=== PATIENT | female | born 1940 | race Caucasian/White ===

== ENCOUNTER 2019-07-15 14:20 | Inpatient (IN) | payer MEDICARE, BC ==
[~2019-07-15] VITALS: Ht 162.6 cm; Wt 74.8 kg
[2019-07-15] MEDS ORDERED: FENTANYL CITRATE 100 MCG/2 ML AMPUL IV ONE (14:30)
--- NOTE | 2019-07-15 14:35 | NUR ---
PATIENT BROUGHT IN BY AMBULANCE VIA GURNEY S/P FALL A/OX3. SPEAKS IN COMPLETE SENTENCES. ABLE TO ANSWER QUESTIONS C/O BACK PAIN RESPIRATION EVEN AND UNLABNORED. MONITORED ACCORDINGLY WILL CONTINUE TO MONITOR PATIENT
[2019-07-15] MEDS ORDERED: FENTANYL CITRATE 100 MCG/2 ML AMPUL ONE (14:38)
--- NOTE | 2019-07-15 15:40 | NUR ---
PT ABLE TO TOLERATE IV FENTANYL ORDERED PT DENIES PAIN AT THIS TIME PT STATES SHE IS SLEEPY, STATES SHE HAS NOT SLEPT WELL YESTERDAY O2SSAT AT 91% PLACED ON SUPPLEMENTAL O2 AT 2LPM VIA NC O2SAT AT 98% Addendum: 07/15/19 at 1544 by MARICASTIL PT ABLE TO TOLERATE IV FENTANYL ORDERED PT DENIES PAIN AT THIS TIME PT STATES SHE IS SLEEPY, STATES SHE HAS NOT SLEPT WELL YESTERDAY
--- NOTE | 2019-07-15 16:06 | NUR ---
PT UNABLE TO TOLERATE STANDING NOR TAKING A STEP DUE TO "SORE R LEG" PT ABLE TO USE THE COMMODE PT ABLE TO TOLERATE ABD BINDER FOR BACK SUPPORT
--- NOTE | 2019-07-15 16:14 | NUR ---
PT BELONGINGS ACCOUNTED FOR
--- NOTE | 2019-07-15 16:22 | NUR ---
med reconciliation was done with the help of the pt friend, NICO SALEEM, .
--- NOTE | 2019-07-15 16:40 | NUR ---
Pt arrived in [facility] via stretcher accompanied by ER nurse. Pt transferred to bed. But pt needed to go to bathroom, assisted with ER nurse. Pt had unsteady gait and felt SOB. Urinated with clear flor urine. Had to use wheelchair to go back to bed. O2 cannula ready at bedside, per pt doesn't need it at the moment. Endorsed to PM shift nurse.
--- NOTE | 2019-07-15 16:48 | NUR ---
Triage SLOTS MANAGER second page for Coreen ([facility])
[2019-07-15] MEDS ORDERED: MORPHINE SULFATE 2 MG/1 ML DISP.SYRIN IV PRN (17:30)
[2019-07-15] MEDS ORDERED: Z GUARD REMEDY PASTE 57 GM TUBE TOP PRN (17:30)
[2019-07-15] MEDS ORDERED: ONDANSETRON 4 MG/2 ML VIAL IV PRN (17:30)
[2019-07-15] MEDS ORDERED: ACETAMINOPHEN 325 MG TABLET PO PRN (17:30)
[2019-07-15] MEDS ORDERED: MAGNESIUM HYDROXIDE 30 ML LIQUID UDC PO PRN (17:30)
--- NOTE | 2019-07-15 18:32 | NUR ---
Pt. admitted to [facility], under care of Dr. Vasquez. Belongs List completed and with patient. Patient is A/Ox3. Able to speak complete sentences. Respiration is even and unlabored. Denies pain at this time.
[2019-07-15 20:17] VITALS: BP 166/80
[2019-07-15] MEDS: HYDROCODONE/APAP 5-325MG TABLET PO PRN (21:48)
--- NOTE | 2019-07-15 23:46 | NUR ---
Resting in bed upon initial rounds. Admitted for ambulatory dysfunction/ intractable back pain. AAOx3-4. VSS. needs attended. Skin intact. Abdominal binder in placed. Medicated with [place] for back pain. Will monitor for relief. Voiding freely in the bedpan. Ua & C& S collected. On O2 @ 2L via nasal cannula, pulse ox 94%. Kept comfortable. Fall precautions maintained. Siderails up for safety.
[2019-07-16 05:52] VITALS: BP 146/78
[2019-07-16 05:58] LABS: BASOPHILS # (AUTO) 0.1 K/uL (0.0-8.0); BASOPHILS % (AUTO) 1.2 % (0.0-2.0); EOSINOPHILS # (AUTO) 0.4 K/uL (0.0-0.7); EOSINOPHILS % (AUTO) 4.5 % (0.0-7.0); HEMATOCRIT 38.4 % (31.2-41.9); HEMOGLOBIN 12.3 g/dL (10.9-14.3); LYMPHOCYTES # (AUTO) 1.4 K/uL (20.0-40.0); LYMPHOCYTES % (AUTO) 17.6 % (20.5-51.5); MEAN CORPUSCULAR HEMOGLOBIN 26.8 uug (24.7-32.8); MEAN CORPUSCULAR HGB CONC 32 g/dL (32.3-35.6); MEAN CORPUSCULAR VOLUME 83.7 fL (75.5-95.3); MONOCYTES # (AUTO) 0.6 K/uL (2.0-10.0); MONOCYTES % (AUTO) 7.5 % (0.0-11.0); NEUTROPHILS # (AUTO) 5.6 K/uL (1.8-8.9); NEUTROPHILS % (AUTO) 69.2 % (38.5-71.5); PLATELET COUNT (AUTO) 210 K/uL (179-408); RED BLOOD CELL COUNT(AUTO) 4.59 MIL/uL (3.63-4.92); WHITE BLOOD COUNT (AUTO) 8.1 K/uL (3.8-11.8)
[2019-07-16] MEDS: HYDROCODONE/APAP 5-325MG TABLET PO PRN ×2 (06:06→23:48)
[2019-07-16 06:09] LABS: CREATININE 0.9 mg/dL (0.6-1.3); POTASSIUM 3.1 mmol/L (3.5-5.1)
[2019-07-16 06:10] LABS: BILIRUBIN,TOTAL 0.8 mg/dL (0.2-1.0); MAGNESIUM 1.8 mg/dL (1.8-2.4); PHOSPHOROUS 3.8 mg/dL (2.5-4.9)
[2019-07-16 06:14] LABS: THYROID STIMULATING HORMONE 1.733 mIU/mL (0.358-3.740)
--- NOTE | 2019-07-16 06:18 | NUR ---
End of shift notes: Slept well most of the shift. Voiding well in bedpan. Needs attended. Medicated for pain as ordered. Tolerated well. Will monitor for relief. Kept comfortable.VSS.
[2019-07-16] MEDS: PANTOPRAZOLE SODIUM 40 MG TABLET.DR PO SCH (06:30)
[2019-07-16] MEDS ORDERED: Medication Not On Formulary EA (Escitalopram Oxalate (Lexapro) 20 MG) PO SCH (09:00)
[2019-07-16] MEDS ORDERED: METOPROLOL TARTRATE 25 MG TABLET PO SCH (09:00)
[2019-07-16] MEDS ORDERED: ONDANSETRON 4 MG/2 ML VIAL IV PRN (09:15)
[2019-07-16] MEDS: ESCITALOPRAM OXALATE 10 MG TABLET PO SCH (09:47)
[2019-07-16] MEDS: ASPIRIN EC 81 MG TABLET.DR PO SCH (09:47)
[2019-07-16] MEDS: MEMANTINE HCL 10 MG TABLET PO SCH ×2 (09:47→17:39)
[2019-07-16] MEDS: LEVOTHYROXINE SODIUM 50 MCG TABLET PO SCH (09:50)
[2019-07-16] MEDS ORDERED: POTASSIUM CHLORIDE 20 MEQ TAB.PRT.SR PO ONE (10:00)
[2019-07-16 13:24] LABS: *BLOOD, URINE 2+ (NEGATIVE); *CLARITY,URINE CLOUDY (CLEAR); *COLOR,URINE DARK YELLOW (YELLOW); *KETONES,URINE NEGATIVE (NEGATIVE); *UROBILINOGEN,URINE 0.2 E.U./dl (NORMAL); LEUKOCYTE ESTERASE ,URINE TRACE (NEGATIVE); NITRITE, URINE POSITIVE (NEGATIVE); PH,URINE 5.5 (5.0-8.0); UGLUCOSE NEGATIVE (NEGATIVE)
[2019-07-16 13:32] LABS: *BILIRUBIN,URIN 1+ (NEGATIVE)
[2019-07-16 13:42] LABS: BACTERIA,URINE MANY /HPF (NONE SEEN); MUCUS,URINE MODERATE /LPF (0-FEW); RBC,URINE 80-100 /HPF (0-3); SQUAMOUS EPITHELIAL CELL,UR MODERATE /HPF (NONE SEEN); URINE AMORPHOUS URATE MANY /HPF; WBC,URINE TNTC /HPF (0-3)
[2019-07-16] MEDS ORDERED: CALCIUM CARBONATE 500 MG TAB.CHEW PO PRN (14:45)
[2019-07-16] MEDS: METOPROLOL SUCCINATE XL 25 MG TAB.SR.24H PO SCH (14:53)
--- NOTE | 2019-07-16 14:55 | NUR ---
Receive patient sleeping in bed in stable condition. Seen and examined by MD Pham and MD Cummings. Potassium 3.0 low. Replacement of 40meq tablet given. tolerated well. no complaint of pain/discomfort. blood culture result positive for MRSA. MD Cummings aware. Continue ATB treatment. no adverse reaction noted. chest xray result negative. MD Pham aware. no new order. will continue monitor Addendum: 07/16/19 at 1500 by CAMERON PEGUERO RN RN ERROR Addendum: 07/16/19 at 1500 by CAMERON PEGUERO RN RN ERROR
--- NOTE | 2019-07-16 15:18 | NUR ---
Received patient awake in stable condition. Seen and examined by VERONICA Vasquez. Potassium 3.1 replace potassium 40meq tablet. tolerated well. Urine specimen collected-sent to lab. awaiting for result. Complaint of stomach pain and heartburn. VERONICA Vasquez ordered TUMS 500mg every 6 hours if needed. not in distress.will continue monitor
[2019-07-16] MEDS ORDERED: ONDANSETRON HCL 4 MG TABLET PO PRN (17:45)
[2019-07-16 18:36] VITALS: BP 134/91
[2019-07-16 19:30] VITALS: BP 148/82
--- NOTE | 2019-07-16 20:00 | NUR ---
Received patient resting bed watching TV. Alert and oriented times 2-3, confused about the times of day, thought it was morning. Vitals are stable, no signs of distress, no signs of SOB. Abdominal binder in placed. Denies pain. All needs attended to. Changed linens and did partial pm care. Kept comfortable. Safety and fall precautions maintained,bed locked and in lowest position, siderails x2 up and call light within patient reach. All items within patient reach. Will continue to monitor.
[2019-07-16] MEDS ORDERED: ATORVASTATIN 40 MG TABLET PO SCH (21:00)
--- NOTE | 2019-07-16 23:50 | NUR ---
Medicated with David for back pain and leg pain patient stated pain was around 6-7/10. Patient also requested to take the abdominal binder off until the morning. Will monitor for relief.
[2019-07-17] MEDS: LEVOTHYROXINE SODIUM 50 MCG TABLET PO SCH (06:16)
[2019-07-17] MEDS: PANTOPRAZOLE SODIUM 40 MG TABLET.DR PO SCH (06:16)
[2019-07-17 06:21] LABS: CREATININE 0.9 mg/dL (0.6-1.3); POTASSIUM 3.8 mmol/L (3.5-5.1)
[2019-07-17 06:51] VITALS: BP 151/67
--- NOTE | 2019-07-17 07:15 | NUR ---
End of shift note. Patient slept through the night. Medicated for pain as ordered and was taken as tolerable. Medication was effective Voided once in the bedpan. Safety measure in place and all needs attended to. Kept comfortable.Will endorse AM shift.
--- NOTE | 2019-07-17 08:00 | NUR ---
awake but forgetful, explained plan of care- verbalized understanding, on room air, denies of dyspnea, safety measures maintained, call light within reach
[2019-07-17 08:57] VITALS: BP 139/73
[2019-07-17] MEDS: METOPROLOL SUCCINATE XL 25 MG TAB.SR.24H PO SCH (08:57)
[2019-07-17] MEDS: ESCITALOPRAM OXALATE 10 MG TABLET PO SCH (08:57)
[2019-07-17] MEDS: ASPIRIN EC 81 MG TABLET.DR PO SCH (08:57)
[2019-07-17] MEDS: MEMANTINE HCL 10 MG TABLET PO SCH (08:57)
[2019-07-17] MEDS ORDERED: CEphaleXIN 500 MG CAPSULE PO SCH (09:00)
--- NOTE | 2019-07-17 10:00 | NUR ---
pt to be d/cd to ARU
[2019-07-17] MEDS: HYDROCODONE/APAP 5-325MG TABLET PO PRN (12:25)
--- NOTE | 2019-07-17 13:54 | NUR ---
discharge instructions given- verbalized well, to be admitted as aru in same room
[2019-07-17] MEDS ORDERED: DONEPEZIL 10 MG TABLET PO SCH (21:00)
== END 2019-07-17 13:55 | DRG 543 ==
LOC: ER 14:20 → MEDSURG3 17:51
PROVIDERS: ADMIT Hospitalist; ATTEND Hospitalist
DX: M84.48XA Pathological fracture, other site, initial encounter for fracture (principal); N39.0 Urinary tract infection, site not specified; E03.9 Hypothyroidism, unspecified; W01.0XXA Fall on same level from slipping, tripping and stumbling without subsequent striking against object, initial encounter; Y93.E8 Activity, other personal hygiene; Y92.031 Bathroom in apartment as the place of occurrence of the external cause; E11.9 Type 2 diabetes mellitus without complications; E78.5 Hyperlipidemia, unspecified; E87.6 Hypokalemia; F03.90 Unspecified dementia, unspecified severity, without behavioral disturbance, psychotic disturbance, mood disturbance, and anxiety; F32.9 Major depressive disorder, single episode, unspecified; Z79.82 Long term (current) use of aspirin; I10 Essential (primary) hypertension
CPT/HCPCS: 36415; 71045; 72100; 72170; 83735; 84100; 84443; 85025; 85730; 87086; 93005; A4663; G0378; J3010

== ENCOUNTER 2019-07-17 13:53 | Inpatient (IN) | payer MEDICARE, BC ==
[~2019-07-17] VITALS: Ht 165.1 cm; Wt 73.5 kg
[2019-07-17 15:00] VITALS: BP 102/50
[2019-07-17] MEDS: MEMANTINE HCL 10 MG TABLET PO SCH (17:55)
[2019-07-17] MEDS: ATORVASTATIN 40 MG TABLET PO SCH (20:36)
[2019-07-17] MEDS: CEphaleXIN 500 MG CAPSULE PO SCH (20:36)
[2019-07-17 21:20] VITALS: BP 143/68
--- NOTE | 2019-07-17 21:28 | NUR ---
Received pt sleeping comfortably. Aroused easily to verbal stimuli. Oriented x3, with episodes of forgetfulness. Denies pain/ discomfort at this time. Due meds given as ordered. Safety measures maintained. Call light and personal items within reach. Will continue to monitor.
[2019-07-17] MEDS: HYDROCODONE/APAP 5-325MG TABLET PO PRN (23:29)
[2019-07-18] MEDS: LEVOTHYROXINE SODIUM 50 MCG TABLET PO SCH (06:04)
[2019-07-18] MEDS: PANTOPRAZOLE SODIUM 40 MG TABLET.DR PO SCH (06:04)
[2019-07-18 06:08] VITALS: BP 142/65
--- NOTE | 2019-07-18 06:29 | NUR ---
Pt slept intermittently at night. Noted to be forgetful. Medicated x1 for back pain. Pt had x4 episodes of incontinence. Linens changed completely. Pt kept clean and dry throughout the night. Turned and repositioned independently. All needs attended to promptly. Will endorse accordingly to oncoming shift. Continue to monitor.
[2019-07-18 08:39] VITALS: BP 140/72
[2019-07-18] MEDS: CEphaleXIN 500 MG CAPSULE PO SCH ×2 (08:48→21:21)
[2019-07-18] MEDS: METOPROLOL SUCCINATE XL 25 MG TAB.SR.24H PO SCH (08:48)
[2019-07-18] MEDS: MEMANTINE HCL 10 MG TABLET PO SCH ×2 (08:48→17:14)
[2019-07-18] MEDS: ASPIRIN EC 81 MG TABLET.DR PO SCH (08:48)
[2019-07-18] MEDS: HYDROCODONE/APAP 5-325MG TABLET PO PRN (11:02)
[2019-07-18] MEDS: PREGABALIN 25 MG CAPSULE PO SCH (18:04)
[2019-07-18] MEDS: METHOCARBAMOL 500 MG TABLET PO SCH (18:05)
[2019-07-18 18:37] VITALS: BP 122/72
--- NOTE | 2019-07-18 18:40 | NUR ---
Pt received this morning, no acute distress or SOB noted. Pt VS 92% on RA, 2L NC placed raising O2 to 94%. Pt forgetful. PRN pain medication administered for pain 10/08 reported somewhat effective. MD notified, new orders received to assist with pain management. Pt compliant with medication administration and therapy as offered. Pt transferred to wheelchair, toilet, and returned, not tolerated well. Pt assisted to use bedpan. Pt assisted to reposition Q2hr. Pt kept clean and dry, diaper use approved. All safety and comfort needs attended to throughout the shift. Will continue to monitor and endorse to oncoming night nurse.
[2019-07-18 20:00] VITALS: BP 114/65
--- NOTE | 2019-07-18 20:00 | NUR ---
Patient received into care, laying in bed, resting comfortably. Patient is alert/oriented x3 and has no complaints of pain or discomfort at this time. All safety and fall precaution measures are in place. Call light and personal items are within reach at all times. Will continue to monitor and assess.
[2019-07-18] MEDS: ATORVASTATIN 40 MG TABLET PO SCH (21:21)
--- NOTE | 2019-07-19 06:00 | NUR ---
Patient slept intermittently throughout night with no complaints of pain or discomfort verbalized by patient or noted/observed by nurse. All prescribed medications provided as ordered and tolerated well by patient with no adverse side effects verbalized by patient or noted/observed by nurse. All nursing needs met promptly and patient is warm, dry, and comfortable. Call light and personal items remain within reach. All safety and fall precaution measures remain within reach.
[2019-07-19] MEDS: PANTOPRAZOLE SODIUM 40 MG TABLET.DR PO SCH (06:12)
[2019-07-19] MEDS: LEVOTHYROXINE SODIUM 50 MCG TABLET PO SCH (06:12)
[2019-07-19 06:26] VITALS: BP 129/58
--- NOTE | 2019-07-19 07:30 | NUR ---
Received patient resting in bed. Alert and [place] x3. and able to make needs known. No acute distress noted and no SOB noted. Denies any pain and discomfort. Due med given as ordered and tolerated well. Safety and comfort measures provided. Call light and personal items within reach. Will continue to monitor.
[2019-07-19] MEDS: CEphaleXIN 500 MG CAPSULE PO SCH ×2 (09:02→20:16)
[2019-07-19] MEDS: HYDROCODONE/APAP 5-325MG TABLET PO PRN ×2 (09:02→23:59)
[2019-07-19] MEDS: PREGABALIN 25 MG CAPSULE PO SCH ×2 (09:04→17:06)
[2019-07-19] MEDS: METHOCARBAMOL 500 MG TABLET PO SCH ×2 (09:04→17:06)
[2019-07-19] MEDS: MEMANTINE HCL 10 MG TABLET PO SCH ×2 (09:04→17:06)
[2019-07-19] MEDS: ASPIRIN EC 81 MG TABLET.DR PO SCH (09:04)
[2019-07-19] MEDS: METOPROLOL SUCCINATE XL 25 MG TAB.SR.24H PO SCH (09:08)
[2019-07-19] MEDS: LIDOCAINE 5% PATCH TD SCH (09:08)
[2019-07-19 12:00] VITALS: BP 120/56
--- NOTE | 2019-07-19 18:37 | NUR ---
Patient resting in bed. Alert and [place] x3. and able to make needs known. No acute distress noted and no SOB noted. Denies any pain and discomfort. All due med given as ordered and tolerated well. Safety and comfort measures provided. Call light and personal items within reach. Will continue to monitor.
--- NOTE | 2019-07-19 19:00 | NUR ---
PATIENT ALERT ORIENTED, NO SOB NO CHEST PAIN. PATIENT COMPLAIN OF MINOR ACHES ON HER BACK, KEPT CLEAN DRY AND COMFORTABLE. CALL LIGHT WITHIN REACH.
[2019-07-19 19:53] VITALS: BP 139/69
[2019-07-19] MEDS: ATORVASTATIN 40 MG TABLET PO SCH (20:15)
--- NOTE | 2019-07-20 05:06 | NUR ---
PATIENT ASLEEP BUT EASILY AROUSABLE, NO SOB NO CHEST PAIN. PATIENT ASSISTED WITH TOILETING, KEPT CLEAN AND DRY. PATIENT WAS MEDICATED FOR PAIN ON BACK WITH EFFECTIVE RESULTS. PATIENT CONT TO MONITOR FOR PAIN AND DISCOMFORT, CALL LIGHT WITHIN REACH. CONT TO MONITOR.
[2019-07-20 05:28] VITALS: BP 115/70
[2019-07-20] MEDS: LEVOTHYROXINE SODIUM 50 MCG TABLET PO SCH (06:28)
[2019-07-20] MEDS: PANTOPRAZOLE SODIUM 40 MG TABLET.DR PO SCH (06:28)
[2019-07-20] MEDS: METHOCARBAMOL 500 MG TABLET PO SCH ×2 (09:26→18:06)
[2019-07-20] MEDS: MEMANTINE HCL 10 MG TABLET PO SCH ×2 (09:26→18:06)
[2019-07-20] MEDS: ASPIRIN EC 81 MG TABLET.DR PO SCH (09:27)
[2019-07-20] MEDS: LIDOCAINE 5% PATCH TD SCH (09:27)
[2019-07-20] MEDS: CEphaleXIN 500 MG CAPSULE PO SCH ×2 (09:27→20:59)
[2019-07-20] MEDS: PREGABALIN 25 MG CAPSULE PO SCH ×2 (09:27→18:05)
[2019-07-20] MEDS: METOPROLOL SUCCINATE XL 25 MG TAB.SR.24H PO SCH (09:27)
[2019-07-20 20:46] VITALS: BP 149/64
[2019-07-20] MEDS: ATORVASTATIN 40 MG TABLET PO SCH (20:59)
[2019-07-20] MEDS: HYDROCODONE/APAP 5-325MG TABLET PO PRN (21:05)
--- NOTE | 2019-07-20 22:00 | NUR ---
RECEIVED PATIENT IN BED, ALERT AND VERBALLY RESPONSIVE. CAN MAKE NEEDS KNOWN. PATIENT RECEIVED DUE MEDICATIONS, TOLERATED WELL. PATIENT PROVIDED WITH MODERATE ASSIST WITH ADLS. KEPT PATIENT WARM, DRY, AND COMFORTABLE. FALL AND SAFETY PRECAUTIONS OBSERVED. WILL CONTINUE TO MONITOR PATIENT AND ANTICIPATE AND ATTEND TO NEEDS
[2019-07-21] MEDS: PANTOPRAZOLE SODIUM 40 MG TABLET.DR PO SCH (06:14)
[2019-07-21] MEDS: LEVOTHYROXINE SODIUM 50 MCG TABLET PO SCH (06:14)
[2019-07-21 06:15] VITALS: BP 154/72
--- NOTE | 2019-07-21 06:19 | NUR ---
PATIENT IS IN BED, ALERT AND VERBALLY RESPONSIVE. PATIENT HAD DIFFICULTY GOING BACK TO SLEEP AFTER AWAKENING AROUND 1AM. PROVIDED DIM, QUIET ENVIRONMENT. PATIENT ASSISTED TO BATHROOM, AMBULATED WITH WALKER WITH CONTACT GUARD ASSIST. TOLERATED ACTIVITY WELL. PATIENT HAD PAIN UPON GETTING BACK TO BED, BUT WITH REST, PAIN WAS RELIEVED. FALL AND SAFETY PRECAUTIONS OBSERVED. ALL NEEDS ATTENDED.
--- NOTE | 2019-07-21 08:00 | NUR ---
received pt. resting in bed. pt. states she is tired and did not have good rest last night. pt. denies pain/ discomfort. pt. denies sob/ difficulty breathing. all needs met. safety measures in place. call light within reach. will continue to monitor pt.
[2019-07-21] MEDS: CEphaleXIN 500 MG CAPSULE PO SCH ×2 (08:34→21:06)
[2019-07-21] MEDS: ASPIRIN EC 81 MG TABLET.DR PO SCH (08:34)
[2019-07-21] MEDS: METHOCARBAMOL 500 MG TABLET PO SCH ×2 (08:34→17:23)
[2019-07-21] MEDS: MEMANTINE HCL 10 MG TABLET PO SCH ×2 (08:34→17:23)
[2019-07-21] MEDS: PREGABALIN 25 MG CAPSULE PO SCH ×2 (08:35→17:23)
[2019-07-21] MEDS: METOPROLOL SUCCINATE XL 25 MG TAB.SR.24H PO SCH (08:35)
[2019-07-21] MEDS: LIDOCAINE 5% PATCH TD SCH (08:35)
[2019-07-21] MEDS: HYDROCODONE/APAP 5-325MG TABLET PO PRN (10:22)
[2019-07-21 12:00] VITALS: BP 144/75
[2019-07-21 16:00] VITALS: BP 121/45
[2019-07-21 20:12] VITALS: BP 133/64
[2019-07-21] MEDS: ATORVASTATIN 20 MG TABLET PO SCH (21:05)
--- NOTE | 2019-07-21 21:28 | NUR ---
Received pt resting in bed and watching tv. AAO x3 with episodes of forgetfulness. No acute distress noted. Denies pain/ discomfort. Due meds given as ordered. Safety measures maintained. Call light and personal items within reach. Will continue to monitor.
[2019-07-22 04:12] VITALS: BP 143/65
[2019-07-22] MEDS: PANTOPRAZOLE SODIUM 40 MG TABLET.DR PO SCH (06:16)
[2019-07-22] MEDS: LEVOTHYROXINE SODIUM 50 MCG TABLET PO SCH (06:17)
--- NOTE | 2019-07-22 08:11 | NUR ---
Received patient in bed sleeping, easy to arouse. In No acute distress at this time. Able to express needs. NO c/o pain at this time. Safety measures in place and will continue with care.
[2019-07-22] MEDS: PREGABALIN 25 MG CAPSULE PO SCH ×2 (08:34→17:12)
[2019-07-22] MEDS: GLIMEPIRIDE 2 MG TABLET PO SCH (08:34)
[2019-07-22] MEDS: MEMANTINE HCL 10 MG TABLET PO SCH ×2 (08:34→17:12)
[2019-07-22] MEDS: ASPIRIN EC 81 MG TABLET.DR PO SCH (08:35)
[2019-07-22] MEDS: CEphaleXIN 500 MG CAPSULE PO SCH (08:35)
[2019-07-22] MEDS: LIDOCAINE 5% PATCH TD SCH (08:36)
[2019-07-22] MEDS: HYDROCODONE/APAP 5-325MG TABLET PO PRN (08:36)
[2019-07-22] MEDS: METOPROLOL SUCCINATE XL 25 MG TAB.SR.24H PO SCH (08:42)
[2019-07-22] MEDS: METHOCARBAMOL 500 MG TABLET PO SCH ×2 (10:07→17:00)
[2019-07-22 15:00] VITALS: BP 118/61
[2019-07-22] MEDS ORDERED: MIRALAX 17 GM POWD.PACK PO PRN (16:15)
--- NOTE | 2019-07-22 19:46 | NUR ---
Patient is AAO x 3 with episodes of forgetfulness noted. NO acute distress noted. Vital signs stable for patient. Due medications administered as ordered and scheduled. ATB therapy of Keflex 500mg PO Q 12hrs administered for UTI. NO complains of pain up on urination. Patient encouraged to take fluids during shift. on PT/OT therapy. Patient uses a walker for ambulatory and 1 person assist. All other needs attended and met. Safety measures in place, call light left at bed side, endorsed to next shift and will continue with care.
--- NOTE | 2019-07-22 20:00 | NUR ---
Received patient resting in bed watching Tv. Alert and oriented x3, forgetful. No signs or symptoms of SOB, no acute distress, denies pain/ discomfort. All safety measure in place, bed locked and lowered to lowest position, x2 bed rails, call light within reach and bed alarm in place.All needs attended to. All items within patient reach. Will continue to monitor patient.
[2019-07-22 20:30] VITALS: BP 110/79
[2019-07-22] MEDS: ATORVASTATIN 20 MG TABLET PO SCH (21:59)
[2019-07-22] MEDS: DOCUSATE SODIUM 100 MG CAPSULE PO SCH (21:59)
[2019-07-23] MEDS: PANTOPRAZOLE SODIUM 40 MG TABLET.DR PO SCH (06:17)
[2019-07-23] MEDS: LEVOTHYROXINE SODIUM 50 MCG TABLET PO SCH (06:17)
[2019-07-23 06:36] LABS: BASOPHILS # (AUTO) 0.1 K/uL (0.0-8.0); BASOPHILS % (AUTO) 2.1 % (0.0-2.0); EOSINOPHILS # (AUTO) 0.4 K/uL (0.0-0.7); EOSINOPHILS % (AUTO) 6.9 % (0.0-7.0); HEMOGLOBIN 11.7 g/dL (10.9-14.3); LYMPHOCYTES # (AUTO) 1.8 K/uL (20.0-40.0); LYMPHOCYTES % (AUTO) 27.7 % (20.5-51.5); MEAN CORPUSCULAR HEMOGLOBIN 27.5 uug (24.7-32.8); MEAN CORPUSCULAR HGB CONC 33 g/dL (32.3-35.6); MEAN CORPUSCULAR VOLUME 84.6 fL (75.5-95.3); MONOCYTES # (AUTO) 0.5 K/uL (2.0-10.0); MONOCYTES % (AUTO) 8.5 % (0.0-11.0); NEUTROPHILS # (AUTO) 3.5 K/uL (1.8-8.9); NEUTROPHILS % (AUTO) 54.8 % (38.5-71.5); PLATELET COUNT (AUTO) 259 K/uL (179-408); RED BLOOD CELL COUNT(AUTO) 4.26 MIL/uL (3.63-4.92); WHITE BLOOD COUNT (AUTO) 6.4 K/uL (3.8-11.8)
[2019-07-23 06:44] VITALS: BP 115/72
[2019-07-23 06:54] LABS: MAGNESIUM 1.9 mg/dL (1.8-2.4); PHOSPHOROUS 3.7 mg/dL (2.5-4.9); POTASSIUM 3.4 mmol/L (3.5-5.1)
--- NOTE | 2019-07-23 07:46 | NUR ---
End shift report. Patient is AAO x 3 with episodes of forgetfulness noted. NO acute distress noted. Vital signs stable for patient. Due medications administered as ordered and scheduled. ATB therapy of Keflex 500mg PO Q 12hrs administered for UTI. Patient encouraged to take fluids during shift. Patient uses a walker for ambulatory and 1 person assist. All other needs attended and met. Safety measures in place, call light left at bed side, endorsed to next shift and will continue with care.
[2019-07-23 08:00] VITALS: BP 143/49
[2019-07-23] MEDS: GLIMEPIRIDE 2 MG TABLET PO SCH (08:38)
[2019-07-23] MEDS: METHOCARBAMOL 500 MG TABLET PO SCH ×2 (08:38→17:50)
[2019-07-23] MEDS: PREGABALIN 25 MG CAPSULE PO SCH ×2 (08:38→17:50)
[2019-07-23] MEDS: MEMANTINE HCL 10 MG TABLET PO SCH ×2 (08:38→17:50)
[2019-07-23] MEDS: ASPIRIN EC 81 MG TABLET.DR PO SCH (08:38)
[2019-07-23] MEDS: LIDOCAINE 5% PATCH TD SCH (08:39)
[2019-07-23] MEDS: HYDROCODONE/APAP 5-325MG TABLET PO PRN (09:19)
[2019-07-23] MEDS: METOPROLOL SUCCINATE XL 25 MG TAB.SR.24H PO SCH (10:11)
[2019-07-23 11:35] VITALS: BP 114/54
[2019-07-23] MEDS ORDERED: POTASSIUM CHLORIDE 20 MEQ TAB.PRT.SR PO ONE (12:00)
[2019-07-23 15:41] VITALS: BP 126/61
[2019-07-23] MEDS ORDERED: ACETAMINOPHEN 325 MG TABLET PO PRN (19:15)
--- NOTE | 2019-07-23 20:00 | NUR ---
Received patient lying in bed watching TV. Alert and oriented times 3-4, forgetful and needs reorientation. Patient is able to express all needs. Expressed frustration with needs being attended to was upset about being wet and not changed after peeing herself. Assisted patient to the restroom with walker, cleaned linens and provided patient with clean dry gown and socks. Patient is lying comfortably in bed, no complaints, all needs attended to. No signs and symptoms of acute distress, no SOB and denies any pain or discomfort. Safety and comfort measures in place and all items are within patient reach. Will continue to monitor.
[2019-07-23 20:04] VITALS: BP 148/62
[2019-07-23] MEDS: DOCUSATE SODIUM 100 MG CAPSULE PO SCH (22:06)
[2019-07-23] MEDS: ATORVASTATIN 20 MG TABLET PO SCH (22:06)
[2019-07-24 05:24] VITALS: BP 122/65
--- NOTE | 2019-07-24 06:27 | NUR ---
End shift report. Patient is AAO x 3/4 need orientation to time. No acute distress noted, no SOB. Vital signs stable for patient. Due medications administered as ordered and scheduled. Patient received bed bath after incontinence. Assisted patient at a different time to the restroom, patient uses a walker for ambulatory and 1 person assist. All needs attended and met. Safety measures in place, call light left at bed side, endorsed to next shift and will continue with care.
[2019-07-24] MEDS: PANTOPRAZOLE SODIUM 40 MG TABLET.DR PO SCH (06:40)
[2019-07-24] MEDS: LEVOTHYROXINE SODIUM 50 MCG TABLET PO SCH (06:40)
[2019-07-24 08:00] VITALS: BP 160/70
[2019-07-24] MEDS: MEMANTINE HCL 10 MG TABLET PO SCH ×2 (08:32→17:23)
[2019-07-24] MEDS: METOPROLOL SUCCINATE XL 25 MG TAB.SR.24H PO SCH (08:33)
[2019-07-24] MEDS: METHOCARBAMOL 500 MG TABLET PO SCH ×2 (08:33→17:22)
[2019-07-24] MEDS: PREGABALIN 25 MG CAPSULE PO SCH ×2 (08:33→17:23)
[2019-07-24] MEDS: ASPIRIN EC 81 MG TABLET.DR PO SCH (08:33)
[2019-07-24] MEDS: GLIMEPIRIDE 2 MG TABLET PO SCH (08:34)
[2019-07-24] MEDS: LIDOCAINE 5% PATCH TD SCH (08:34)
[2019-07-24 11:59] VITALS: BP 121/61
--- NOTE | 2019-07-24 13:44 | NUR ---
INTERDISCIPLINARY TEAM CONFERENCE
--- NOTE | 2019-07-24 15:19 | NUR ---
PATIENT IS ALERT, ORIENTED X3, WITH EPISODES OF FORGETFUL, NO ACUTE DISTRESS NOTED, PATIENT IS AMBULATORY WITH SUPERVISION, KEPT SAFE
[2019-07-24 20:13] VITALS: BP 168/69
[2019-07-24] MEDS: ATORVASTATIN 20 MG TABLET PO SCH (20:55)
[2019-07-24] MEDS: DOCUSATE SODIUM 100 MG CAPSULE PO SCH (20:55)
[2019-07-24] MEDS: HYDROCODONE/APAP 5-325MG TABLET PO PRN (22:16)
--- NOTE | 2019-07-25 01:39 | NUR ---
alert and oriented x4 needs attended. VSS voiding freely in the bedpan. No acute distress noted. Tolerated po meds well. Left hip dressing intact. Pain meds given as needed. Relief noted. Kept comfortable. Will monitor patient. Fall precautions maintained. Siderails up for safety. Addendum: 07/25/19 at 0142 by CONY ROMAN RN wrong charting/wrong patient
--- NOTE | 2019-07-25 01:46 | NUR ---
resting in bed upon initial rounds. AAOx3-4 Needs attended. Voiding freely. No acute distress noted. Will monitor patient. VSS complained of low back pain, [place] 1 tab given as needed. Relief noted. Fall precautions maintained.
[2019-07-25 05:03] VITALS: BP 128/58
[2019-07-25] MEDS: PANTOPRAZOLE SODIUM 40 MG TABLET.DR PO SCH (06:23)
[2019-07-25] MEDS: LEVOTHYROXINE SODIUM 50 MCG TABLET PO SCH (06:23)
--- NOTE | 2019-07-25 06:43 | NUR ---
End of the shift note: Uneventful night. Slept well most of the shift. Needs attended. No complaints presented during shift. Fall precautions maintained. VSS.
--- NOTE | 2019-07-25 07:47 | NUR ---
Patient noted resting with eyes closed, no facial cues of pain at this time, no signs of distress noted, call light in reach, bed locked and in lowest position, all needs met at this time
[2019-07-25 08:00] VITALS: BP 102/58
[2019-07-25] MEDS: ASPIRIN EC 81 MG TABLET.DR PO SCH (08:46)
[2019-07-25] MEDS: METHOCARBAMOL 500 MG TABLET PO SCH ×2 (08:46→17:31)
[2019-07-25] MEDS: PREGABALIN 25 MG CAPSULE PO SCH ×2 (08:46→17:31)
[2019-07-25] MEDS: METOPROLOL SUCCINATE XL 25 MG TAB.SR.24H PO SCH (08:47)
[2019-07-25] MEDS: MEMANTINE HCL 10 MG TABLET PO SCH ×2 (08:47→17:31)
[2019-07-25] MEDS: GLIMEPIRIDE 2 MG TABLET PO SCH (08:47)
[2019-07-25] MEDS: LIDOCAINE 5% PATCH TD SCH (08:48)
[2019-07-25] MEDS: HYDROCODONE/APAP 5-325MG TABLET PO PRN (08:49)
[2019-07-25 16:08] VITALS: BP 136/67
--- NOTE | 2019-07-25 19:56 | NUR ---
Awake alert and oriented x3-4 No acute distress noted. Needs attended. VSS. Continent of bowel and bladder. No BM noted this shift. Fall precautions maintained. Siderails up for safety.
[2019-07-25 20:41] VITALS: BP 128/62
[2019-07-25] MEDS: DOCUSATE SODIUM 100 MG CAPSULE PO SCH (20:48)
[2019-07-25] MEDS: ATORVASTATIN 20 MG TABLET PO SCH (20:48)
[2019-07-26] MEDS: HYDROCODONE/APAP 5-325MG TABLET PO PRN ×2 (04:43→14:52)
[2019-07-26 05:37] VITALS: BP 128/65
[2019-07-26] MEDS: LEVOTHYROXINE SODIUM 50 MCG TABLET PO SCH (06:24)
[2019-07-26] MEDS: PANTOPRAZOLE SODIUM 40 MG TABLET.DR PO SCH (06:24)
--- NOTE | 2019-07-26 06:39 | NUR ---
End of shift note: OOB with walker with supervision before bedtime. Needs attended. Ambulates to and from the hallway with supervision. Gait slow but steady. Needs attended. Pain meds guiven with relief noted. Voided. No BM noted this shift. Kept comfortable. VSS.
[2019-07-26] MEDS: ASPIRIN EC 81 MG TABLET.DR PO SCH (10:43)
[2019-07-26] MEDS: METOPROLOL SUCCINATE XL 25 MG TAB.SR.24H PO SCH (10:43)
[2019-07-26] MEDS: GLIMEPIRIDE 2 MG TABLET PO SCH (10:43)
[2019-07-26] MEDS: METHOCARBAMOL 500 MG TABLET PO SCH ×2 (10:43→16:59)
[2019-07-26] MEDS: MEMANTINE HCL 10 MG TABLET PO SCH ×2 (10:43→16:59)
[2019-07-26] MEDS: PREGABALIN 25 MG CAPSULE PO SCH ×2 (10:44→16:59)
[2019-07-26] MEDS: LIDOCAINE 5% PATCH TD SCH (10:45)
[2019-07-26 12:33] VITALS: BP 127/74
[2019-07-26 15:16] VITALS: BP 118/61
[2019-07-26] MEDS: DOCUSATE SODIUM 100 MG CAPSULE PO SCH (20:11)
[2019-07-26] MEDS: ATORVASTATIN 20 MG TABLET PO SCH (20:11)
--- NOTE | 2019-07-26 20:16 | NUR ---
Received pt resting in bed. AAO x3, forgetful. No acute distress noted. Denies pain/ discomfort. Due meds given as ordered. Safety measures maintained. Call light and personal items within reach. Will continue to monitor.
[2019-07-26 20:18] VITALS: BP 138/57
[2019-07-27 04:09] VITALS: BP 145/60
[2019-07-27] MEDS: LEVOTHYROXINE SODIUM 50 MCG TABLET PO SCH (06:04)
[2019-07-27] MEDS: PANTOPRAZOLE SODIUM 40 MG TABLET.DR PO SCH (06:04)
[2019-07-27 06:06] LABS: CREATININE 0.9 mg/dL (0.6-1.3); POTASSIUM 3.7 mmol/L (3.5-5.1)
[2019-07-27 08:00] VITALS: BP 179/98
[2019-07-27] MEDS: PREGABALIN 25 MG CAPSULE PO SCH ×2 (09:04→17:57)
[2019-07-27] MEDS: MEMANTINE HCL 10 MG TABLET PO SCH ×2 (09:04→17:58)
[2019-07-27] MEDS: METHOCARBAMOL 500 MG TABLET PO SCH ×2 (09:04→17:58)
[2019-07-27] MEDS: LIDOCAINE 5% PATCH TD SCH (09:04)
[2019-07-27] MEDS: ASPIRIN EC 81 MG TABLET.DR PO SCH (09:04)
[2019-07-27] MEDS: METOPROLOL SUCCINATE XL 25 MG TAB.SR.24H PO SCH (09:04)
[2019-07-27] MEDS: GLIMEPIRIDE 2 MG TABLET PO SCH (09:04)
[2019-07-27] MEDS ORDERED: HYDROCODONE/APAP 10-325 MG TABLET PO PRN (11:15)
[2019-07-27 16:49] VITALS: BP 178/72
--- NOTE | 2019-07-27 18:29 | NUR ---
D/C TO [facility]. REPORT GIVEN TO RYAN. D/C NOTES AND INSTRUCTIONS GIVEN TO [facility] FOR TRANSPORTATION.
== END 2019-07-27 18:00 | DRG 560 ==
PROVIDERS: ADMIT Physical Medicine & Rehabilitation Pain Medicine; ATTEND Physical Medicine & Rehabilitation Pain Medicine
DX: M48.55XD Collapsed vertebra, not elsewhere classified, thoracolumbar region, subsequent encounter for fracture with routine healing (principal); N39.0 Urinary tract infection, site not specified; D68.59 Other primary thrombophilia; E03.9 Hypothyroidism, unspecified; E78.5 Hyperlipidemia, unspecified; W01.0XXD Fall on same level from slipping, tripping and stumbling without subsequent striking against object, subsequent encounter; F03.90 Unspecified dementia, unspecified severity, without behavioral disturbance, psychotic disturbance, mood disturbance, and anxiety; F32.9 Major depressive disorder, single episode, unspecified; I10 Essential (primary) hypertension; I70.0 Atherosclerosis of aorta; E87.6 Hypokalemia; I25.10 Atherosclerotic heart disease of native coronary artery without angina pectoris; I25.2 Old myocardial infarction; R15.9 Full incontinence of feces; R26.81 Unsteadiness on feet; Z91.81 History of falling; E11.9 Type 2 diabetes mellitus without complications; R53.1 Weakness; M47.26 Other spondylosis with radiculopathy, lumbar region; R29.6 Repeated falls; R32 Unspecified urinary incontinence; Z88.0 Allergy status to penicillin
CPT/HCPCS: 36415; 82652; 83735; 84100; 85025

== ENCOUNTER 2019-10-04 21:25 | Inpatient (IN) | payer MEDICARE, BC ==
[~2019-10-04] VITALS: Ht 162.6 cm; Wt 64.9 kg
[~2019-10-04 21:25] MED LIST: ASPI-618 PO; ATOR20TA PO; DOCU100C36 PO; GLIM2TAB PO; HYDR-3980 PO; LEVO50TA8 PO; LIDO30AD10 TD; MEMA10TA PO; METH500T6 PO; METO-356 PO; PANT40TA2 PO; PREG25CA PO
--- NOTE | 2019-10-04 21:30 | NUR ---
Dr. Cao at bedside for MSE.
[2019-10-04] MEDS ORDERED: ASPIRIN 81 MG TAB.CHEW ONE (21:43)
[2019-10-04] MEDS ORDERED: ONDANSETRON 4 MG/2 ML VIAL ONE (21:44)
[2019-10-04] MEDS ORDERED: NITROGLYCERIN OINT 1 GM PACKET TP ONE ×2 (21:44→21:45)
[2019-10-04] MEDS ORDERED: ASPIRIN 81 MG TAB.CHEW PO ONE (21:45)
[2019-10-04] MEDS ORDERED: IV NORMAL SALINE 1000 ML BAG IV ONE (21:45)
[2019-10-04] MEDS ORDERED: ONDANSETRON 4 MG/2 ML VIAL IV ONE (21:45)
[2019-10-04 21:48] LABS: BASOPHILS # (AUTO) 0.1 K/uL (0.0-8.0); BASOPHILS % (AUTO) 0.5 % (0.0-2.0); EOSINOPHILS # (AUTO) 0.1 K/uL (0.0-0.7); EOSINOPHILS % (AUTO) 0.9 % (0.0-7.0); HEMATOCRIT 40.3 % (31.2-41.9); HEMOGLOBIN 12.9 g/dL (10.9-14.3); LYMPHOCYTES % (AUTO) 8.5 % (20.5-51.5); MEAN CORPUSCULAR HEMOGLOBIN 26.8 uug (24.7-32.8); MEAN CORPUSCULAR HGB CONC 32 g/dL (32.3-35.6); MEAN CORPUSCULAR VOLUME 83.5 fL (75.5-95.3); MONOCYTES # (AUTO) 0.8 K/uL (2.0-10.0); MONOCYTES % (AUTO) 6.6 % (0.0-11.0); NEUTROPHILS # (AUTO) 10.1 K/uL (1.8-8.9); NEUTROPHILS % (AUTO) 83.5 % (38.5-71.5); PLATELET COUNT (AUTO) 266 K/uL (179-408); RED BLOOD CELL COUNT(AUTO) 4.82 MIL/uL (3.63-4.92)
[2019-10-04 21:54] LABS: CARBON DIOXIDE 25 mmol/L (21-32); CHLORIDE 104 mmol/L (98-107); CREATININE 1.4 mg/dL (0.6-1.3); GLUCOSE 139 mg/dL (74-106); POTASSIUM 3.7 mmol/L (3.5-5.1); UREA NITROGEN, BLOOD 15 mg/dL (7-18)
--- NOTE | 2019-10-04 21:57 | NUR ---
Xray at bedside.
[2019-10-04 22:07] LABS: ALANINE AMINOTRANSFERASE 43 U/L (14-59); ALKALINE PHOSPHATASE 127 U/L (50-136); ASPARTATE AMINOTRANSFERASE 33 U/L (15-37); BILIRUBIN,DIRECT 0.1 mg/dL (0.0-0.2); BILIRUBIN,TOTAL 0.6 mg/dL (0.2-1.0); TOTAL PROTEIN, SERUM 6.9 g/dL (6.4-8.2)
--- NOTE | 2019-10-04 22:55 | NUR ---
Inserted loza catheter, pt tolerated procedure well, urine sample sent to lab.
[2019-10-04 23:12] LABS: *BILIRUBIN,URIN 2+ (NEGATIVE); *CLARITY,URINE SLIGHTLY CLOUDY (CLEAR); *COLOR,URINE DARK YELLOW (YELLOW); *KETONES,URINE 2+ (NEGATIVE); *UROBILINOGEN,URINE 0.2 E.U./dl (NORMAL); LEUKOCYTE ESTERASE ,URINE NEGATIVE (NEGATIVE); NITRITE, URINE NEGATIVE (NEGATIVE); PH,URINE 5.5 (5.0-8.0); UGLUCOSE NEGATIVE (NEGATIVE)
[2019-10-04 23:13] LABS: *BLOOD, URINE TRACE (NEGATIVE)
--- NOTE | 2019-10-04 23:17 | NUR ---
Called [facility] to page Td Vasquez DNP.
[2019-10-04 23:22] LABS: SQUAMOUS EPITHELIAL CELL,UR MODERATE /HPF (NONE SEEN); WBC,URINE 0-3 /HPF (0-3)
--- NOTE | 2019-10-04 23:45 | NUR ---
Dr. Cao on panel call with Td Vasquez DNP. Patient accepted for admission to [facility], diagnosis: generalized weakness.
[2019-10-05] MEDS ORDERED: ONDANSETRON 4 MG/2 ML VIAL IV PRN
[2019-10-05] MEDS ORDERED: Z GUARD REMEDY PASTE 57 GM TUBE TOP PRN
--- NOTE | 2019-10-05 00:02 | NUR ---
Report given to Greta VILLAGRAN Tele.
--- NOTE | 2019-10-05 00:30 | NUR ---
RECEIVED PT FROM ER VIA [facility]. UNDER THE CARE OF DR. STRICKLAND. DX;ACUTE RENAL FAILURE. PT IN NO ACUTE DISTRESS. IV INTACT. MCC ASSESSMENT DONE. PT HAD REDNESS ON RIGHT BUTTOCK. PT REFUSED TO LET US TAKE A PHOTO OF HER SKIN. ADMISSION PROCESS AND CARE PLAN INITIATED. SAFETY AND COMFORT PROVIDED. WILL CONTINUE TO MONITOR.
[2019-10-05 01:00] VITALS: BP 119/51
[2019-10-05] MEDS: IV NS 1000 ML 1,000 ML IV PRN ×2 (02:32→16:44)
[2019-10-05 03:19] LABS: BASOPHILS # (AUTO) 0.1 K/uL (0.0-8.0); BASOPHILS % (AUTO) 0.8 % (0.0-2.0); EOSINOPHILS # (AUTO) 0.1 K/uL (0.0-0.7); EOSINOPHILS % (AUTO) 0.9 % (0.0-7.0); HEMATOCRIT 33.1 % (31.2-41.9); HEMOGLOBIN 10.8 g/dL (10.9-14.3); LYMPHOCYTES # (AUTO) 1.3 K/uL (20.0-40.0); LYMPHOCYTES % (AUTO) 12.6 % (20.5-51.5); MEAN CORPUSCULAR HEMOGLOBIN 27.2 uug (24.7-32.8); MEAN CORPUSCULAR HGB CONC 33 g/dL (32.3-35.6); MEAN CORPUSCULAR VOLUME 83.6 fL (75.5-95.3); MONOCYTES # (AUTO) 0.8 K/uL (2.0-10.0); MONOCYTES % (AUTO) 8.1 % (0.0-11.0); NEUTROPHILS # (AUTO) 8.1 K/uL (1.8-8.9); NEUTROPHILS % (AUTO) 77.6 % (38.5-71.5); PLATELET COUNT (AUTO) 213 K/uL (179-408); RED BLOOD CELL COUNT(AUTO) 3.96 MIL/uL (3.63-4.92); WHITE BLOOD COUNT (AUTO) 10.4 K/uL (3.8-11.8)
[2019-10-05 03:27] LABS: BILIRUBIN,TOTAL 0.4 mg/dL (0.2-1.0); CREATININE 1.1 mg/dL (0.6-1.3); MAGNESIUM 1.8 mg/dL (1.8-2.4); PHOSPHOROUS 4.5 mg/dL (2.5-4.9); POTASSIUM 3.4 mmol/L (3.5-5.1); TOTAL PROTEIN, SERUM 5.6 g/dL (6.4-8.2)
[2019-10-05] MEDS: PANTOPRAZOLE SODIUM 40 MG TABLET.DR PO SCH (06:18)
[2019-10-05] MEDS: LEVOTHYROXINE SODIUM 50 MCG TABLET PO SCH (06:18)
--- NOTE | 2019-10-05 06:21 | NUR ---
PT SLEPT INTERMITTENTLY. PT COOPERATIVE WITH CARE. PT MEDICATIONS BROUGHT DOWN TO PHARMACY. PT REFUSED TO LET STAFF TOOK A PHOTO OF HER RIGHT BUTTOCK REDNESS. IV INTACT. SAFETY AND COMFORT PROVIDED. ALL NEEDS ARE MET. WILL ENDORSE TO INCOMING NURSE FOR CONTINUITY OF CARE.
[2019-10-05 06:35] VITALS: BP 137/83
--- NOTE | 2019-10-05 08:00 | NUR ---
RECEIVED PATIENT IN BED AWAKE ALERT AND ORIENTED BUT IS FORGETFUL NEEDS TO BE REMINDED TO USE THE CALL LIGHT AND STAY IN BED UNTIL HELP ARRIVES REMAIN ON IVF ORDERED WITH NO S/S OF INFILTERATION AT THIS TIME PATIENT PLACED ON C DIFF ISOLATION PENDING COLLECTION OF STOOL AND RESULTS ORDERED.
[2019-10-05] MEDS: GLIMEPIRIDE 2 MG TABLET PO SCH (08:57)
[2019-10-05] MEDS ORDERED: LIDOCAINE 5% PATCH TD SCH (09:00)
[2019-10-05] MEDS: METOPROLOL SUCCINATE XL 25 MG TAB.SR.24H PO SCH (09:09)
[2019-10-05] MEDS: ASPIRIN EC 81 MG TABLET.DR PO SCH (09:09)
[2019-10-05] MEDS: PREGABALIN 25 MG CAPSULE PO SCH ×2 (09:09→16:44)
[2019-10-05] MEDS: MEMANTINE HCL 10 MG TABLET PO SCH ×2 (09:12→16:44)
[2019-10-05] MEDS: ACETAMINOPHEN 325 MG TABLET PO PRN (09:21)
[2019-10-05] MEDS: LIDOCAINE 5% PATCH TD SCH (10:05)
[2019-10-05 11:30] VITALS: BP 107/57
[2019-10-05] MEDS ORDERED: POTASSIUM CHLORIDE 20 MEQ POWDER PACKET PO ONE (11:34)
[2019-10-05] MEDS: MAGNESIUM SULFATE/D5W 100 ML IV SCH ×2 (12:23→13:22)
--- NOTE | 2019-10-05 15:01 | NUR ---
PATIENT HAD A BOWEL MOVEMENT STOOL COLLECTED AND SENT TO THE LAB ORDERED AWAITING FOR RESULT.
[2019-10-05 15:56] VITALS: BP 148/72
--- NOTE | 2019-10-05 20:00 | NUR ---
Received patient awake and alert. Patient shows no signs or symptoms of distress at this time. Vital signs stable. IV patent and intact with no signs of infiltration. Bed set to lowest position. Call light within reach. Side rails x2 are up. Will continue to monitor patient.
[2019-10-05] MEDS: Z GUARD REMEDY PASTE 57 GM TUBE TOP SCH (20:33)
[2019-10-05 20:36] VITALS: BP 150/52
[2019-10-05] MEDS ORDERED: ATORVASTATIN 20 MG TABLET PO SCH (21:00)
[2019-10-05] MEDS ORDERED: DOCUSATE SODIUM 100 MG CAPSULE PO SCH (21:00)
[2019-10-06] VITALS: BP 125/83
[2019-10-06] MEDS: ACETAMINOPHEN 325 MG TABLET PO PRN (01:12)
[2019-10-06] MEDS: HYDROCODONE/APAP 5-325MG TABLET PO PRN ×2 (02:48→21:55)
[2019-10-06 04:00] VITALS: BP_SYST 122; BP_SYST 134; BP_DIAS 58; BP_DIAS 78
[2019-10-06] MEDS: LEVOTHYROXINE SODIUM 50 MCG TABLET PO SCH (06:10)
[2019-10-06] MEDS: PANTOPRAZOLE SODIUM 40 MG TABLET.DR PO SCH (06:10)
[2019-10-06 06:41] LABS: CREATININE 1.1 mg/dL (0.6-1.3); MAGNESIUM 2.2 mg/dL (1.8-2.4); PHOSPHOROUS 2.9 mg/dL (2.5-4.9); POTASSIUM 3.4 mmol/L (3.5-5.1)
[2019-10-06 06:43] LABS: BASOPHILS # (AUTO) 0.1 K/uL (0.0-8.0); BASOPHILS % (AUTO) 0.7 % (0.0-2.0); EOSINOPHILS # (AUTO) 0.2 K/uL (0.0-0.7); EOSINOPHILS % (AUTO) 2.7 % (0.0-7.0); HEMATOCRIT 33.3 % (31.2-41.9); HEMOGLOBIN 10.9 g/dL (10.9-14.3); LYMPHOCYTES # (AUTO) 1.3 K/uL (20.0-40.0); LYMPHOCYTES % (AUTO) 15.5 % (20.5-51.5); MEAN CORPUSCULAR HEMOGLOBIN 27.4 uug (24.7-32.8); MEAN CORPUSCULAR HGB CONC 33 g/dL (32.3-35.6); MEAN CORPUSCULAR VOLUME 83.6 fL (75.5-95.3); MONOCYTES # (AUTO) 1.1 K/uL (2.0-10.0); MONOCYTES % (AUTO) 13.3 % (0.0-11.0); NEUTROPHILS # (AUTO) 5.7 K/uL (1.8-8.9); NEUTROPHILS % (AUTO) 67.8 % (38.5-71.5); PLATELET COUNT (AUTO) 199 K/uL (179-408); RED BLOOD CELL COUNT(AUTO) 3.99 MIL/uL (3.63-4.92); WHITE BLOOD COUNT (AUTO) 8.4 K/uL (3.8-11.8)
[2019-10-06] MEDS: IV NS 1000 ML 1,000 ML IV PRN (06:43)
--- NOTE | 2019-10-06 07:05 | NUR ---
Patient shows no signs or symptoms of distress at this time. Vital signs stable. NSR with v-pacing on tele monitor. Will endorse patient to day shift nurse in stable condition.
--- NOTE | 2019-10-06 07:31 | NUR ---
PATIENT RECEIVED IN BED ASLEEP AROUSES EASILY ON ROUNDS ON ROOM AIR WITH NO SHORTNESS OF BREATH AT THIS TIME REMAIN ON IVF ORDERED WITH NO S/S OF INFILTERATION ON ROUNDS REMAIN ON CONTACT ISOLATION ORDERED PENDING RESULT OF C DIFF ORDERED CALL LIGHTS AND PERSONAL BELONGINGS ARE WITHIN EASY REACH WILL CONTINUE TO OBSERVE PT AND PROVIDE SAFE ENVIRONMENT
[2019-10-06] MEDS: MEMANTINE HCL 10 MG TABLET PO SCH ×2 (08:32→16:59)
[2019-10-06] MEDS: PREGABALIN 25 MG CAPSULE PO SCH ×2 (08:32→16:59)
[2019-10-06] MEDS: ASPIRIN EC 81 MG TABLET.DR PO SCH (08:33)
[2019-10-06] MEDS: GLIMEPIRIDE 2 MG TABLET PO SCH (08:33)
[2019-10-06] MEDS: LIDOCAINE 5% PATCH TD SCH (08:33)
[2019-10-06] MEDS: METOPROLOL SUCCINATE XL 25 MG TAB.SR.24H PO SCH (08:34)
[2019-10-06] MEDS: Z GUARD REMEDY PASTE 57 GM TUBE TOP SCH ×2 (08:36→21:39)
[2019-10-06] MEDS ORDERED: POTASSIUM CHLORIDE 20 MEQ POWDER PACKET PO ONE (10:15)
--- NOTE | 2019-10-06 10:15 | NUR ---
POTASSIUM LEVEL IS 3.4 PATIENT SEEN BY JUAN WITH NEW REPLACEMENT ORDER AND NOTED
[2019-10-06 11:34] VITALS: BP 130/56
--- NOTE | 2019-10-06 14:30 | NUR ---
PATIENT IS POSITIVE FOR C DIFF PER THE [facility] NOTIFIED WITH NEW ORDERS AND NOTED.PATIENT CONTINUES ON ISOLATION ORDERED.
[2019-10-06] MEDS: METRONIDAZOLE 500 MG TABLET PO SCH ×2 (15:16→21:39)
[2019-10-06 16:00] VITALS: BP 154/83
[2019-10-06] MEDS: VANCOMYCIN FOR PO/GT/NG USE PO SCH (17:28)
--- NOTE | 2019-10-06 18:00 | NUR ---
IV SITE WAS INFILTERATED AND PATIENT WAS NOT ALLOWING ME TO RESTART LINE STATED WANTS TO REST FIRST BUT SHE FINALLY ALLOWED ME TO INSERT ONE TO HER LEFT FOREARM WITH ONE ATTEMPT IVF CONTINUED ORDERED.REMAIN ON FLAGYL AND ORAL VANCO ORDERED WITH NO ADVERSE EFFECTS AT THIS TIME WILL CONTINUE TO OBSERVE.
--- NOTE | 2019-10-06 19:30 | NUR ---
Received patient lying in bed. No signs of acute distress. No complaints of SOB. Patient was forgetful as to where she was at, reoriented her easily and she was compliant with care. Left forearm IV patent and intact. Safety measures initiated and will continue to monitor.
[2019-10-06 20:00] VITALS: BP 148/69
[2019-10-06] MEDS: ATORVASTATIN 10 MG TABLET PO SCH (21:39)
[2019-10-07] MEDS: VANCOMYCIN FOR PO/GT/NG USE PO SCH ×5 (00:04→23:58)
[2019-10-07] MEDS: IV NS 1000 ML 1,000 ML IV PRN (02:24)
[2019-10-07 04:00] VITALS: BP 102/69
[2019-10-07] MEDS: PANTOPRAZOLE SODIUM 40 MG TABLET.DR PO SCH (06:07)
[2019-10-07] MEDS: METRONIDAZOLE 500 MG TABLET PO SCH ×3 (06:07→21:47)
[2019-10-07] MEDS: LEVOTHYROXINE SODIUM 50 MCG TABLET PO SCH (06:07)
--- NOTE | 2019-10-07 06:21 | NUR ---
Patient is calm and lying in bed. No signs of acute distress. No complaints of pain or SOB this morning. Patient slept intermittently. Vital signs were stable. monitor tech in place. Left forearm IV intact and running NS at 75ml/hr. Needs met and attended to. Safety measures endorsed to oncoming staff.
[2019-10-07 06:45] LABS: CREATININE 0.9 mg/dL (0.6-1.3); POTASSIUM 3.3 mmol/L (3.5-5.1)
[2019-10-07 06:47] LABS: BASOPHILS # (AUTO) 0.1 K/uL (0.0-8.0); EOSINOPHILS # (AUTO) 0.3 K/uL (0.0-0.7); HEMATOCRIT 33.8 % (31.2-41.9); LYMPHOCYTES # (AUTO) 1.5 K/uL (20.0-40.0); LYMPHOCYTES % (AUTO) 23.9 % (20.5-51.5); MEAN CORPUSCULAR HGB CONC 33 g/dL (32.3-35.6); MEAN CORPUSCULAR VOLUME 82.8 fL (75.5-95.3); MONOCYTES # (AUTO) 0.9 K/uL (2.0-10.0); MONOCYTES % (AUTO) 14.2 % (0.0-11.0); NEUTROPHILS # (AUTO) 3.4 K/uL (1.8-8.9); NEUTROPHILS % (AUTO) 55.9 % (38.5-71.5); PLATELET COUNT (AUTO) 203 K/uL (179-408); RED BLOOD CELL COUNT(AUTO) 4.08 MIL/uL (3.63-4.92); WHITE BLOOD COUNT (AUTO) 6.1 K/uL (3.8-11.8)
--- NOTE | 2019-10-07 07:45 | NUR ---
Received patient in bed awake, alert and oriented times 4. No signs of respiratory distress notes at this time, patient is saturating well on room air. No complaint of pain at this time. IV in tact on left AC, no sign of infiltration. Patient is positive for C-Diff so contact isolation implemented and communicated to MEDICAL ONCOLOGY PHYSICIAN. Safety measures in place bed in lowest position, locked and bed alarm activated. Call light and patient's belongings are within reach. Will continue to monitor and observe.
[2019-10-07] MEDS ORDERED: POTASSIUM CHLORIDE 20 MEQ TAB.PRT.SR PO ONE (08:15)
[2019-10-07] MEDS: PREGABALIN 25 MG CAPSULE PO SCH ×2 (08:52→17:46)
[2019-10-07] MEDS: LIDOCAINE 5% PATCH TD SCH (08:52)
[2019-10-07] MEDS: ASPIRIN EC 81 MG TABLET.DR PO SCH (08:53)
[2019-10-07] MEDS: GLIMEPIRIDE 2 MG TABLET PO SCH (08:53)
[2019-10-07] MEDS: MEMANTINE HCL 10 MG TABLET PO SCH ×2 (08:53→17:46)
[2019-10-07] MEDS: Z GUARD REMEDY PASTE 57 GM TUBE TOP SCH ×2 (08:54→21:41)
[2019-10-07] MEDS: METOPROLOL SUCCINATE XL 25 MG TAB.SR.24H PO SCH (09:11)
--- NOTE | 2019-10-07 11:00 | NUR ---
Patient complains of increased coughing and was able to observe myself, will communicate new finding to MD and dayday test ordered for patient
[2019-10-07 11:56] VITALS: BP 150/74
[2019-10-07] MEDS ORDERED: LOPERAMIDE HCL 2 MG CAPSULE PO PRN (12:00)
[2019-10-07] MEDS: ENOXAPARIN SODIUM 40 MG/0.4 ML DISP.SYRIN SQ SCH (13:53)
[2019-10-07] MEDS: IV 1/2NS 1000 ML 1,000 ML IV PRN (13:58)
[2019-10-07 16:00] VITALS: BP 146/56
--- NOTE | 2019-10-07 18:26 | NUR ---
Patient resting comfortably in bed. No signs of respiratory distress noted, patient is saturating well on room air. Will continue patient of IV fluids as ordered. Safety precautions in place, patient's bed is in the lowest position and locked with alarm activated. Patient's belongings are within reach as well as the call light. Awaiting the results for covid testing done. Will endorse to the oncoming nurse.
--- NOTE | 2019-10-07 19:21 | NUR ---
Patient received in bed, AAOx4. Patient denies any acute distress or pain at this time. Patient is saturating well in room air, vitals are stable. Patient's IV on LFA is patent with 1/2 NS running at 50cc. Safety measures in place. Call light within reach. Bed low and locked in position. Will continue with the plan of care.
[2019-10-07 20:09] VITALS: BP 148/70
[2019-10-07] MEDS: ATORVASTATIN 10 MG TABLET PO SCH (21:47)
[2019-10-08 00:08] VITALS: BP 163/79
[2019-10-08] MEDS: HYDROCODONE/APAP 5-325MG TABLET PO PRN (03:10)
[2019-10-08 04:40] VITALS: BP 165/87
[2019-10-08 06:13] LABS: BASOPHILS # (AUTO) 0.1 K/uL (0.0-8.0); BASOPHILS % (AUTO) 0.9 % (0.0-2.0); EOSINOPHILS # (AUTO) 0.3 K/uL (0.0-0.7); EOSINOPHILS % (AUTO) 3.7 % (0.0-7.0); HEMOGLOBIN 11.5 g/dL (10.9-14.3); LYMPHOCYTES # (AUTO) 1.1 K/uL (20.0-40.0); LYMPHOCYTES % (AUTO) 14.6 % (20.5-51.5); MEAN CORPUSCULAR HGB CONC 33 g/dL (32.3-35.6); MEAN CORPUSCULAR VOLUME 82.4 fL (75.5-95.3); MONOCYTES # (AUTO) 0.8 K/uL (2.0-10.0); MONOCYTES % (AUTO) 10.3 % (0.0-11.0); NEUTROPHILS # (AUTO) 5.5 K/uL (1.8-8.9); NEUTROPHILS % (AUTO) 70.5 % (38.5-71.5); PLATELET COUNT (AUTO) 223 K/uL (179-408); RED BLOOD CELL COUNT(AUTO) 4.25 MIL/uL (3.63-4.92); WHITE BLOOD COUNT (AUTO) 7.8 K/uL (3.8-11.8)
[2019-10-08] MEDS: PANTOPRAZOLE SODIUM 40 MG TABLET.DR PO SCH (06:19)
[2019-10-08] MEDS: METRONIDAZOLE 500 MG TABLET PO SCH ×3 (06:19→21:21)
[2019-10-08] MEDS: LEVOTHYROXINE SODIUM 50 MCG TABLET PO SCH (06:19)
[2019-10-08] MEDS: VANCOMYCIN FOR PO/GT/NG USE PO SCH ×4 (06:20→23:23)
[2019-10-08 06:27] LABS: CREATININE 0.9 mg/dL (0.6-1.3); POTASSIUM 3.2 mmol/L (3.5-5.1)
--- NOTE | 2019-10-08 06:50 | NUR ---
Patient slept intermittently through the night. Patient is awake and denies any acute distress or pain at this time. Patient is Sinus Rhythm 91 on tele monitor. Vitals stable. Prescribed medications given, patient tolerated. Comfort care and needs attended. Pain was managed effectively on my shift. Isolation and fall precaution maintained. Safety measures in place. Bed low and locked in position. Call light within reach. Will endorse to the oncoming nurse accordingly.
[2019-10-08] MEDS ORDERED: POTASSIUM CHLORIDE 20 MEQ POWDER PACKET PO ONE (07:30)
[2019-10-08] MEDS: POTASSIUM CHLORIDE 50 ML IV SCH ×2 (08:03→09:16)
[2019-10-08] MEDS: GLIMEPIRIDE 2 MG TABLET PO SCH (08:05)
[2019-10-08] MEDS: ASPIRIN EC 81 MG TABLET.DR PO SCH (08:05)
[2019-10-08] MEDS: PREGABALIN 25 MG CAPSULE PO SCH ×2 (08:06→16:29)
[2019-10-08] MEDS: MEMANTINE HCL 10 MG TABLET PO SCH ×2 (08:06→16:29)
[2019-10-08] MEDS: METOPROLOL SUCCINATE XL 25 MG TAB.SR.24H PO SCH (08:09)
[2019-10-08] MEDS: ENOXAPARIN SODIUM 40 MG/0.4 ML DISP.SYRIN SQ SCH (08:26)
[2019-10-08] MEDS: Z GUARD REMEDY PASTE 57 GM TUBE TOP SCH ×2 (08:54→20:40)
[2019-10-08] MEDS: LIDOCAINE 5% PATCH TD SCH (09:41)
[2019-10-08 11:27] VITALS: BP 153/70
--- NOTE | 2019-10-08 13:31 | NUR ---
received patient in bed, awake and verbally responsive. No signs of distress noted. No SOB. No complain of Pain or discomfort noted. On contact Isolation for Cdiff stool. Kept clean and comfortable. Will continue to monitor.
--- NOTE | 2019-10-08 14:40 | NUR ---
Patient was placed on Oxygen at 2L via Nasal canula by On continuous Pulse oximeter, saturating 97%. Addendum: 10/08/19 at 1458 by THERESE RUSH RN Wrong patient
[2019-10-08 16:20] VITALS: BP 142/66
--- NOTE | 2019-10-08 18:17 | NUR ---
Patient in bed awake and verbally responsive. No signs distress noted. No SOB. Afebrile. No complain of Pain or discomfort. patient had yellow semi formed BM x2. Remains on Contact isolation for Cdiff stool. Kept clean and comfortable. will endorse to Oncoming Nurse.
--- NOTE | 2019-10-08 19:30 | NUR ---
Received patient awake, alert, and verbally responsive lying in bed. No signs of acute distress. No complaints of pain or SOB. Patient is on Contact precaution for C.DIFF. IV fluids running at 50ml/hr in the Left Forearm 20G IV. Safety measures initiated and will continue to monitor.
[2019-10-08 20:14] VITALS: BP 134/59
[2019-10-08] MEDS: ATORVASTATIN 10 MG TABLET PO SCH (20:39)
[2019-10-08] MEDS ORDERED: MIRTAZAPINE 15 MG TABLET PO SCH (21:00)
[2019-10-09 04:08] VITALS: BP 140/70
[2019-10-09] MEDS: IV 1/2NS 1000 ML 1,000 ML IV PRN (05:25)
[2019-10-09] MEDS: PANTOPRAZOLE SODIUM 40 MG TABLET.DR PO SCH (06:16)
[2019-10-09] MEDS: METRONIDAZOLE 500 MG TABLET PO SCH ×3 (06:16→21:43)
[2019-10-09] MEDS: LEVOTHYROXINE SODIUM 50 MCG TABLET PO SCH (06:16)
[2019-10-09] MEDS: VANCOMYCIN FOR PO/GT/NG USE PO SCH ×4 (06:16→23:00)
--- NOTE | 2019-10-09 06:27 | NUR ---
Patient lying calmly in bed sleeping. No signs of acute distress. No c/o pain or SOB. Patient compliant with all medications. Patient continues to be on contact isolation for C.DIFF. Patient needs met and attended to. Safety measures endorsed to oncoming staff.
--- NOTE | 2019-10-09 08:00 | NUR ---
Received patient in bed, awake and verbally responsive. No signs of distress noted. No SOB. Afebrile. No complain of pain or discomfort. Remains on Contact Isolation for Cdiff Stool. Proper PPE strictly Observed. No BM reported from Last night. kept clean and comfortable. Will continue to monitor.
[2019-10-09 08:09] LABS: BASOPHILS # (AUTO) 0.1 K/uL (0.0-8.0); EOSINOPHILS # (AUTO) 0.2 K/uL (0.0-0.7); EOSINOPHILS % (AUTO) 5.2 % (0.0-7.0); HEMATOCRIT 35.4 % (31.2-41.9); HEMOGLOBIN 11.4 g/dL (10.9-14.3); LYMPHOCYTES # (AUTO) 1.3 K/uL (20.0-40.0); LYMPHOCYTES % (AUTO) 29.6 % (20.5-51.5); MEAN CORPUSCULAR HEMOGLOBIN 26.8 uug (24.7-32.8); MEAN CORPUSCULAR HGB CONC 32 g/dL (32.3-35.6); MONOCYTES # (AUTO) 0.6 K/uL (2.0-10.0); MONOCYTES % (AUTO) 13.1 % (0.0-11.0); NEUTROPHILS # (AUTO) 2.2 K/uL (1.8-8.9); NEUTROPHILS % (AUTO) 50.1 % (38.5-71.5); PLATELET COUNT (AUTO) 238 K/uL (179-408); RED BLOOD CELL COUNT(AUTO) 4.26 MIL/uL (3.63-4.92); WHITE BLOOD COUNT (AUTO) 4.4 K/uL (3.8-11.8)
[2019-10-09 08:31] LABS: BILIRUBIN,TOTAL 0.3 mg/dL (0.2-1.0); CREATININE 0.9 mg/dL (0.6-1.3); MAGNESIUM 1.4 mg/dL (1.8-2.4); PHOSPHOROUS 3.8 mg/dL (2.5-4.9); POTASSIUM 3.9 mmol/L (3.5-5.1); TOTAL PROTEIN, SERUM 5.5 g/dL (6.4-8.2)
[2019-10-09] MEDS: MEMANTINE HCL 10 MG TABLET PO SCH ×2 (08:41→17:23)
[2019-10-09] MEDS: METOPROLOL SUCCINATE XL 25 MG TAB.SR.24H PO SCH (08:42)
[2019-10-09] MEDS: ASPIRIN EC 81 MG TABLET.DR PO SCH (08:42)
[2019-10-09] MEDS: PREGABALIN 25 MG CAPSULE PO SCH ×2 (08:43→17:23)
[2019-10-09] MEDS: GLIMEPIRIDE 2 MG TABLET PO SCH (08:43)
[2019-10-09] MEDS: ENOXAPARIN SODIUM 40 MG/0.4 ML DISP.SYRIN SQ SCH (08:45)
[2019-10-09] MEDS: LIDOCAINE 5% PATCH TD SCH (08:46)
[2019-10-09] MEDS: Z GUARD REMEDY PASTE 57 GM TUBE TOP SCH ×2 (09:07→20:04)
[2019-10-09] MEDS: MAGNESIUM SULFATE/D5W 100 ML IV SCH ×2 (09:44→10:50)
[2019-10-09 11:43] VITALS: BP 107/54
[2019-10-09] MEDS: BENZOCAINE/MENTH/CETYLPYRD LOZENGE MM PRN (13:39)
[2019-10-09 15:09] VITALS: BP 118/62
--- NOTE | 2019-10-09 18:41 | NUR ---
Patient in bed, awake and verbally responsive. No signs of distress noted. No SOB, C/o of Sore throat , Cepacol lozenges x1 given with relief. No complain of pain/discomfort. No BM noted on this shift. remains on contact isolation for cdiff, proper PPE strictly Observed. Kept clean and comfortable. Will endorse to Oncoming Nurse.
--- NOTE | 2019-10-09 20:00 | NUR ---
Patient received into care, laying in bed asleep, but easy to rouse. Patient is alert/oriented x2 and has no complaints of pain or discomfort at this time. Left forearm IV cath is patent and intact running prescribed IVF at correct rate. All safety, isolation, allergy, and fall precautions measures are in place. Call light and personal items are within reach at all times. Will continue to monitor and assess.
[2019-10-09] MEDS: ATORVASTATIN 10 MG TABLET PO SCH (20:02)
[2019-10-09] MEDS: MIRTAZAPINE 15 MG TABLET PO SCH (20:03)
[2019-10-09 20:18] VITALS: BP 117/84
--- NOTE | 2019-10-09 23:46 | NUR ---
received report from night nurse. patient under RN care
[2019-10-10] MEDS: IV 1/2NS 1000 ML 1,000 ML IV PRN (00:38)
[2019-10-10] MEDS: ACETAMINOPHEN 325 MG TABLET PO PRN (01:42)
[2019-10-10] MEDS: BENZOCAINE/MENTH/CETYLPYRD LOZENGE MM PRN (01:42)
[2019-10-10 04:12] VITALS: BP 171/69
[2019-10-10] MEDS: METOPROLOL SUCCINATE XL 25 MG TAB.SR.24H PO SCH (05:45)
--- NOTE | 2019-10-10 05:45 | NUR ---
morning BP medication administered now due to high blood pressure. charge nurse aware. will continue to monitor and assess.
[2019-10-10] MEDS: HYDROCODONE/APAP 5-325MG TABLET PO PRN (05:56)
[2019-10-10] MEDS: PANTOPRAZOLE SODIUM 40 MG TABLET.DR PO SCH (06:02)
[2019-10-10] MEDS: LEVOTHYROXINE SODIUM 50 MCG TABLET PO SCH (06:02)
[2019-10-10] MEDS: VANCOMYCIN FOR PO/GT/NG USE PO SCH ×3 (06:02→17:30)
[2019-10-10] MEDS: METRONIDAZOLE 500 MG TABLET PO SCH ×3 (06:02→21:01)
[2019-10-10 07:00] LABS: BASOPHILS # (AUTO) 0.1 K/uL (0.0-8.0); BASOPHILS % (AUTO) 1.1 % (0.0-2.0); CREATININE 0.9 mg/dL (0.6-1.3); EOSINOPHILS # (AUTO) 0.4 K/uL (0.0-0.7); EOSINOPHILS % (AUTO) 6.7 % (0.0-7.0); HEMATOCRIT 33.6 % (31.2-41.9); HEMOGLOBIN 11.1 g/dL (10.9-14.3); LYMPHOCYTES % (AUTO) 30.2 % (20.5-51.5); MAGNESIUM 2.1 mg/dL (1.8-2.4); MEAN CORPUSCULAR HEMOGLOBIN 27.1 uug (24.7-32.8); MEAN CORPUSCULAR HGB CONC 33 g/dL (32.3-35.6); MEAN CORPUSCULAR VOLUME 82.2 fL (75.5-95.3); MONOCYTES # (AUTO) 0.7 K/uL (2.0-10.0); MONOCYTES % (AUTO) 10.2 % (0.0-11.0); NEUTROPHILS # (AUTO) 3.4 K/uL (1.8-8.9); NEUTROPHILS % (AUTO) 51.8 % (38.5-71.5); PLATELET COUNT (AUTO) 266 K/uL (179-408); POTASSIUM 3.5 mmol/L (3.5-5.1); RED BLOOD CELL COUNT(AUTO) 4.09 MIL/uL (3.63-4.92); WHITE BLOOD COUNT (AUTO) 6.6 K/uL (3.8-11.8)
--- NOTE | 2019-10-10 07:34 | NUR ---
dr. gerry lutz made aware of patient BP this morning rechecked by RN and at 190's. administered norco and metroprolol ER. BP went down back to 170's and recheck going back up to 190's. will endorse to morning nurse to follow up with doctor.
--- NOTE | 2019-10-10 07:38 | NUR ---
RECEIVED PATIENT IN BED, ASLEEP, EASY TO WAKE UP, AOX2. DENIES SOB OR CHEST PAIN. NO SIGNS OF DISTRESS AT THIS TIME. PAIN MANAGEMENT HAS BEEN ADDRESSED PATIENT DENIES PAIN. ALL NEEDS MET AT THIS TIME. SAFETY AND FALL PREVENTION IN PLACE. BED LOW AND LOCKED. CALL LIGHT IN REACH. WILL CONTINUE TO MONITOR.
[2019-10-10] MEDS ORDERED: CLONIDINE HCL 0.1 MG TABLET PO ONE (07:45)
[2019-10-10] MEDS ORDERED: CLONIDINE HCL 0.1 MG TABLET PO PRN (07:45)
[2019-10-10] MEDS ORDERED: LOPE2CAP40 PO (09:19)
[2019-10-10] MEDS ORDERED: CLON0.1T14 PO (09:19)
[2019-10-10] MEDS ORDERED: MIRT15TA7 PO (09:19)
[2019-10-10] MEDS ORDERED: ATOR10TA PO (09:19)
[2019-10-10] MEDS ORDERED: ESCI10TA PO (09:19)
[2019-10-10] MEDS ORDERED: VANC500V PO (09:19)
[2019-10-10] MEDS ORDERED: METR-147 PO (09:19)
[2019-10-10] MEDS: GLIMEPIRIDE 2 MG TABLET PO SCH (09:27)
[2019-10-10] MEDS: ESCITALOPRAM OXALATE 10 MG TABLET PO SCH (09:27)
[2019-10-10] MEDS: MEMANTINE HCL 10 MG TABLET PO SCH ×2 (09:27→17:30)
[2019-10-10] MEDS: ASPIRIN EC 81 MG TABLET.DR PO SCH (09:27)
[2019-10-10] MEDS: ENOXAPARIN SODIUM 40 MG/0.4 ML DISP.SYRIN SQ SCH (09:28)
[2019-10-10] MEDS: PREGABALIN 25 MG CAPSULE PO SCH ×2 (09:28→17:30)
[2019-10-10] MEDS: LIDOCAINE 5% PATCH TD SCH (09:29)
[2019-10-10] MEDS: Z GUARD REMEDY PASTE 57 GM TUBE TOP SCH ×2 (09:45→21:01)
[2019-10-10 12:16] VITALS: BP 90/45
--- NOTE | 2019-10-10 12:16 | NUR ---
Notifed md of pt. bp 90/32, 89/32. notified that catapress 0.2 mg given this am. md ordered 500 bolus of ns and dc catapress.
[2019-10-10 12:29] VITALS: BP 90/36
[2019-10-10] MEDS ORDERED: IV NORMAL SALINE 500 ML IV ONE (12:45)
[2019-10-10 16:21] VITALS: BP 93/43
[2019-10-10 16:38] VITALS: BP 108/46
--- NOTE | 2019-10-10 19:42 | NUR ---
AOX2. BP IMPROVED. NO CHEST PAIN OR SOB THROUGHOUT THE SHIFT. REPORT GIVEN TO PAPER TESTER NURSE.
--- NOTE | 2019-10-10 19:48 | NUR ---
Received patient resting in bed, easily to arouse. A/Ox2. No signs of acute distress noted. No complaints of pain or SOB. 500ml NS bolus is finished, resumed IVF of 0.45% NS at 50ml/hr. IVF running on the left forearm, no s/s of infection or infiltration noted. BP is now 102/47. Patient is asymptomatic. Safety measures initiated. bed is low and locked, call light within reach. Will continue to monitor.
[2019-10-10 20:15] VITALS: BP 102/49
[2019-10-10] MEDS: ATORVASTATIN 10 MG TABLET PO SCH (20:59)
[2019-10-10] MEDS: MIRTAZAPINE 15 MG TABLET PO SCH (20:59)
[2019-10-11] MEDS: VANCOMYCIN FOR PO/GT/NG USE PO SCH ×6 (00:16→23:12)
[2019-10-11] MEDS: IV 1/2NS 1000 ML 1,000 ML IV PRN ×2 (00:34→23:19)
[2019-10-11 05:17] VITALS: BP 152/67
[2019-10-11] MEDS: METRONIDAZOLE 500 MG TABLET PO SCH ×3 (06:10→22:59)
[2019-10-11] MEDS: LEVOTHYROXINE SODIUM 50 MCG TABLET PO SCH (06:10)
[2019-10-11] MEDS: PANTOPRAZOLE SODIUM 40 MG TABLET.DR PO SCH (06:10)
[2019-10-11] MEDS: LIDOCAINE 5% PATCH TD SCH (07:59)
[2019-10-11] MEDS: MEMANTINE HCL 10 MG TABLET PO SCH ×2 (07:59→16:37)
[2019-10-11] MEDS: ASPIRIN EC 81 MG TABLET.DR PO SCH (07:59)
[2019-10-11] MEDS: ESCITALOPRAM OXALATE 10 MG TABLET PO SCH (08:00)
[2019-10-11] MEDS: PREGABALIN 25 MG CAPSULE PO SCH ×2 (08:00→16:37)
[2019-10-11] MEDS: GLIMEPIRIDE 2 MG TABLET PO SCH (08:00)
--- NOTE | 2019-10-11 08:00 | NUR ---
Pt is in no acute distress. Pt seen by hospitalist Chele MARTIN to is planned for D/c if ok with DR Estrada. Pt on fall precaution. Bed alarm on. Call light is within reach.
[2019-10-11] MEDS: METOPROLOL SUCCINATE XL 25 MG TAB.SR.24H PO SCH (08:01)
[2019-10-11] MEDS: Z GUARD REMEDY PASTE 57 GM TUBE TOP SCH ×2 (08:04→20:23)
[2019-10-11] MEDS: ENOXAPARIN SODIUM 40 MG/0.4 ML DISP.SYRIN SQ SCH (08:04)
--- NOTE | 2019-10-11 09:00 | NUR ---
No SI noted. Pt doesnt voice out any SI. Pt is in no acute distress.
[2019-10-11 11:26] VITALS: BP 169/75
[2019-10-11 13:27] VITALS: BP 149/54
--- NOTE | 2019-10-11 15:18 | NUR ---
[facility] and Hospitalist [facility] doesnt feel safe discharging pt at home. Case management from [facility] will reassess situation.
[2019-10-11 15:30] VITALS: BP 132/63
--- NOTE | 2019-10-11 18:34 | NUR ---
Pt . pt getting more confused and get oob bed alarm turned on and IV pulled out by patient. Pt is in no acute distress. Call light is within reach.
--- NOTE | 2019-10-11 20:00 | NUR ---
Received patient awake but confused. Patient shows no signs or symptoms of distress at this time. New 20g heplock inserted to left wrist. Vital signs stable. Side rails x2 are up. Call light within reach. Will continue to monitor patient.
[2019-10-11] MEDS: MIRTAZAPINE 15 MG TABLET PO SCH (20:23)
[2019-10-11] MEDS: ATORVASTATIN 10 MG TABLET PO SCH (20:23)
[2019-10-11 20:25] VITALS: BP 142/67
[2019-10-12 05:50] LABS: BASOPHILS # (AUTO) 0.2 K/uL (0.0-8.0); BASOPHILS % (AUTO) 3.1 % (0.0-2.0); EOSINOPHILS # (AUTO) 0.3 K/uL (0.0-0.7); EOSINOPHILS % (AUTO) 3.5 % (0.0-7.0); HEMATOCRIT 40.1 % (31.2-41.9); HEMOGLOBIN 12.8 g/dL (10.9-14.3); LYMPHOCYTES # (AUTO) 1.6 K/uL (20.0-40.0); LYMPHOCYTES % (AUTO) 20.4 % (20.5-51.5); MEAN CORPUSCULAR HEMOGLOBIN 26.4 uug (24.7-32.8); MEAN CORPUSCULAR HGB CONC 32 g/dL (32.3-35.6); MEAN CORPUSCULAR VOLUME 82.5 fL (75.5-95.3); MONOCYTES # (AUTO) 0.9 K/uL (2.0-10.0); MONOCYTES % (AUTO) 11.2 % (0.0-11.0); NEUTROPHILS % (AUTO) 61.8 % (38.5-71.5); PLATELET COUNT (AUTO) 319 K/uL (179-408); RED BLOOD CELL COUNT(AUTO) 4.86 MIL/uL (3.63-4.92); WHITE BLOOD COUNT (AUTO) 8.1 K/uL (3.8-11.8)
[2019-10-12 05:56] LABS: CREATININE 0.9 mg/dL (0.6-1.3); POTASSIUM 3.3 mmol/L (3.5-5.1)
[2019-10-12] MEDS: METRONIDAZOLE 500 MG TABLET PO SCH ×2 (06:00→13:42)
[2019-10-12] MEDS: VANCOMYCIN FOR PO/GT/NG USE PO SCH ×3 (06:00→17:02)
[2019-10-12] MEDS: PANTOPRAZOLE SODIUM 40 MG TABLET.DR PO SCH (06:00)
[2019-10-12] MEDS: LEVOTHYROXINE SODIUM 50 MCG TABLET PO SCH (06:00)
[2019-10-12 06:16] VITALS: BP 134/68
--- NOTE | 2019-10-12 06:45 | NUR ---
Patient shows no signs or symptoms of distress at this time. Vital signs stable. No bowel movements during spout worker. Patient to be endorsed to day shift nurse in stable condition.
[2019-10-12] MEDS ORDERED: POTASSIUM CHLORIDE 20 MEQ TAB.PRT.SR PO ONE ×2 (07:30→07:34)
[2019-10-12] MEDS: MEMANTINE HCL 10 MG TABLET PO SCH ×2 (08:10→16:56)
[2019-10-12] MEDS: ASPIRIN EC 81 MG TABLET.DR PO SCH (08:10)
[2019-10-12] MEDS: ESCITALOPRAM OXALATE 10 MG TABLET PO SCH (08:10)
[2019-10-12] MEDS: PREGABALIN 25 MG CAPSULE PO SCH ×2 (08:10→16:56)
[2019-10-12] MEDS: GLIMEPIRIDE 2 MG TABLET PO SCH (08:10)
[2019-10-12] MEDS: METOPROLOL SUCCINATE XL 25 MG TAB.SR.24H PO SCH (08:10)
[2019-10-12] MEDS: LIDOCAINE 5% PATCH TD SCH (08:11)
[2019-10-12] MEDS: ENOXAPARIN SODIUM 40 MG/0.4 ML DISP.SYRIN SQ SCH (08:11)
[2019-10-12] MEDS: Z GUARD REMEDY PASTE 57 GM TUBE TOP SCH (09:09)
[2019-10-12 11:33] VITALS: BP 135/63
--- NOTE | 2019-10-12 12:31 | NUR ---
rn report given to sulema to [facility]
[2019-10-12 16:00] VITALS: BP 141/50
--- NOTE | 2019-10-12 18:34 | NUR ---
dc orders received noted and carried out,dc instruction and rn report given to the custodial,jessica alonzo per md orders.pt left the facility via ambulances in stable condition
== END 2019-10-12 18:40 | DRG 371 ==
LOC: ER 21:27 → TELE3 10-05 00:12 → MEDSURG3 10-08 07:42
PROVIDERS: ADMIT Internal Medicine; ATTEND Nurse Practitioner Acute Care
DX: A04.72 Enterocolitis due to Clostridium difficile, not specified as recurrent (principal); N17.0 Acute kidney failure with tubular necrosis; F33.2 Major depressive disorder, recurrent severe without psychotic features; D68.69 Other thrombophilia; M48.55XA Collapsed vertebra, not elsewhere classified, thoracolumbar region, initial encounter for fracture; R53.1 Weakness; I25.2 Old myocardial infarction; E86.0 Dehydration; E11.9 Type 2 diabetes mellitus without complications; E03.9 Hypothyroidism, unspecified; E78.5 Hyperlipidemia, unspecified; E87.6 Hypokalemia; G89.29 Other chronic pain; I25.10 Atherosclerotic heart disease of native coronary artery without angina pectoris; Z79.82 Long term (current) use of aspirin; Z79.84 Long term (current) use of oral hypoglycemic drugs; Z86.73 Personal history of transient ischemic attack (TIA), and cerebral infarction without residual deficits; Z87.891 Personal history of nicotine dependence; F03.90 Unspecified dementia, unspecified severity, without behavioral disturbance, psychotic disturbance, mood disturbance, and anxiety; R94.31 Abnormal electrocardiogram [ECG] [EKG]; I10 Essential (primary) hypertension
CPT/HCPCS: 36415; 70030-TC; 71045; 83550; 83735; 84100; 84443; 85025; 85730; 93005; 93307; A4663; C1758; G0378; J1650; J2405; J3370; J3475; J3480; J3490; J7030; J7040; U0003-CS